=== PATIENT | male | born 1960 | race Caucasian/White ===

== ENCOUNTER 2019-05-05 09:09 | Outpatient (CLI) | payer MEDICARE, MEDICAID, SELFPAY ==
--- NOTE | 2019-05-05 09:15 | US_ITS ---
WS: [id number] RENAL ULTRASOUND with urinary bladder. HISTORY: FLANK PAIN COMPARISON: 11/13/2015 TECHNIQUE: 2-D and color Doppler imaging of the kidney submitted. Right kidney: 11.2 cm x 5.9 cm x 6.6 cm. Normal size kidney. Cortical cyst in the mid to upper kidney measures 2.9 cm in diameter. No increase d vascularity. No solid mass or hydronephrosis. Left kidney: 12.4 cm x 5.7 cm x 4.5 cm. Normal echogenicity with no hydronephrosis or mass. Aorta: Normal. Urinary Bladder: Normal distention. No soft tissue masses. No significant post void residual. Volume decreases from 76 to 6 ml. US/US renal BI with bladder IMPRESSION: 1. No hydronephrosis or solid mass. 2. Simple cortical cyst RIGHT kidney. 3. No post void residual.
== END 2019-05-05 09:10 | disposition home or self-care (01) ==
LOC: RAD 09:11
PROVIDERS: Family Provider Family Medicine; PCP Family Medicine; Visit Provider Family Medicine
DX: N28.1 Cyst of kidney, acquired (principal); R10.9 Unspecified abdominal pain
CPT/HCPCS: 76770; 76857

== ENCOUNTER → 2019-05-12 09:56 | Outpatient (BNVA) | payer MEDICARE, MEDICAID, SELFPAY | PROVIDERS: Family Provider Family Medicine; PCP Family Medicine; Visit Provider Urology | DX: N40.1 Benign prostatic hyperplasia with lower urinary tract symptoms; N13.8 Other obstructive and reflux uropathy; M54.9 Dorsalgia, unspecified | CPT/HCPCS: 81001 ==

== ENCOUNTER 2020-05-23 12:09 | Outpatient (CLI) | payer MEDICARE, MEDICAID, SELFPAY ==
--- NOTE | 2020-05-23 12:22 | XRR_ITS ---
PROCEDURE INFORMATION: Exam: XR Right Shoulder Exam date and time: 05/23/2020 12:38 PM Age: 60 years old Clinical indication: Patient HX: Bilateral shoulder pain 5-6 months; Additional info: Right shoulder pain TECHNIQUE: Imaging protocol: XR Right shoulder. Views: 2 or more views. COMPARISON: CR Shoulder 2+ views RIGHT* [id number] 06/02/2013 1:56 PM FINDINGS: Bones/joints: No fracture or dislocation. There is mild degenerative changes of the glenohumeral and acromioclavicular joints, manifested by joint space narrowing and small periarticular osteophytes. Lower cervical spine fusion hardware noted. Soft tissues: Normal. XR/XR shoulder RT min 2V* [id number] IMPRESSION: Mild degenerative changes of the glenohumeral and acromioclavicular joints.
--- NOTE | 2020-05-23 12:22 | XRR_ITS ---
PROCEDURE INFORMATION: Exam: XR Left Shoulder Exam date and time: 05/23/2020 12:40 PM Age: 60 years old Clinical indication: Patient HX: Bilateral shoulder pain 5-6 months; Additional info: Left shoulder pain TECHNIQUE: Imaging protocol: XR Left shoulder. Views: 2 or more views. COMPARISON: CR Shoulder 2+ views LEFT* [id number] 06/02/2013 1:56 PM FINDINGS: Bones/joints: No fracture or dislocation. There is mild degenerative changes of the glenohumeral and acromioclavicular joints, manifested by joint space narrowing and small periarticular osteophytes. Cervical spine fusion hardware is partially included. Soft tissues: Normal. XR/XR shoulder LT min 2V* [id number] IMPRESSION: Mild degenerative changes of the glenohumeral and acromioclavicular joints.
== END 2020-05-23 12:10 | disposition home or self-care (01) ==
PROVIDERS: PCP Family Medicine; Visit Provider Family Medicine
DX: M25.511 Pain in right shoulder (principal); M25.512 Pain in left shoulder
CPT/HCPCS: 73030

== ENCOUNTER → 2021-01-29 14:23 | Outpatient (BNVA) | payer MEDICARE, MEDICAID, SELFPAY | PROVIDERS: PCP Family Medicine; Visit Provider Specialist | DX: M19.011 Primary osteoarthritis, right shoulder (principal); M25.511 Pain in right shoulder | CPT/HCPCS: 73030 ==

== ENCOUNTER 2021-02-12 17:34 | Emergency (ER) | payer MEDICARE, MEDICAID, SELFPAY ==
[2021-02-12 17:40] VITALS: BP 190/100; PULSE 73; RESP 22; TEMP 37.2; O2SAT 95; BMI 31.6
--- NOTE | 2021-02-12 17:50 | XRR_ITS ---
PROCEDURE INFORMATION: Exam: XR Ribs Exam date and time: 02/12/2021 5:50 PM Age: 60 years old Clinical indication: Other: RT rib pain TECHNIQUE: Imaging protocol: XR of the ribs. Views: 3 views. Bilateral ribs. Total images: 4 COMPARISON: CR Chest 2 views* [id number] 05/16/2017 11:27 AM FINDINGS: Bones/joints: No visible rib fracture. Soft tissues: Unremarkable. XR/XR ribs BI 3V* [id number] IMPRESSION: No visible rib fracture. Radiation Dose CTDIVOL = (mGy): DLP = (mGy-cm)
--- NOTE | 2021-02-12 17:50 | XRR_ITS ---
PROCEDURE INFORMATION: Exam: XR Chest Exam date and time: 02/12/2021 5:50 PM Age: 60 years old Clinical indication: Pain; Right-sided TECHNIQUE: Imaging protocol: XR of the chest. Views: 2 views. Total images: 2 COMPARISON: CR Chest 2 views* [id number] 05/16/2017 11:27 AM FINDINGS: Lungs: Bibasilar discoid atelectasis, right lung more involved than left. Calcified granulomas of antecedent disease. Mild volume loss right lung with elevation the right hemidiaphragm. Pleural spaces: No visible pleural effusion. No pneumothorax. Heart/Mediastinum: Cardiac structures and configuration stable and unremarkable for age. Bones/joints: Previous cervical fusion. Degenerative disease of the spine. XR/XR chest 2V* [id number] IMPRESSION: 1. Bibasilar discoid atelectasis, right lung more involved than left. 2. Mild volume loss right lung with elevation the right hemidiaphragm. Radiation Dose CTDIVOL = (mGy): DLP = (mGy-cm)
[2021-02-12 17:58] VITALS: PULSE 80; RESP 18; TEMP 36.9; O2SAT 98
[2021-02-12] MEDS: acetaminophen-codeine 300-30mg Tablet 1 TAB PO (18:03)
--- NOTE | 2021-02-12 19:12 | ECG_ITS ---
[facility] Test Date: 2021-02-12 Pat Name: Cristiano Stiles Department: Room: Gender: Male [employer]: : 1960 Requested By: Isadora Mcclain Order Number: [id number] Woodard MD: Orville Leon M.D. Measurements Intervals [place] Rate: 69 P: 19 RI: 204 QRS: -12 QRSD: 104 T: 39 QT: 409 QTc: 440 Interpretive Statements SINUS RHYTHM Compared to ECG 10/26/2016 13:23:17 No significant changes Electronically Signed On 02-12-2021 23:51:38 CDT by Orville Leon M.D. [email or web address] Technologieskindred [id number]
--- NOTE | 2021-02-12 19:41 | W.ED.GENADLT ---
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 visible mesenteric contusion or hematoma. Vasculature: IVC filter. The abdominal aorta is nonaneurysmal. Lymph nodes: Unremarkable. No enlarged lymph nodes. Urinary bladder: Urinary bladder unremarkable. Reproductive: Mild prostate hypertrophy. Bones/joints: No visible acute osseous abnormality. 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 Facet arthrosis. Soft tissues: Bilateral small inguinal hernias containing fat only. No visible soft tissue contusion, hematoma, or seroma. CT/CT angio chest w abd pel w con IMPRESSION: 1. No visible blunt abdominal or pelvic trauma. 2. No visible solid or hollow viscus organ injury. 3. Left adrenal nodule measuring 21 mm x 20 mm. If the patient has no cancer history, then consider follow-up non-emergent adrenal CT or resection. If the patient has a history of cancer, then consider biopsy or PET/CT. (Reference: [facility]). COMMENTS: 1. Consistent with the [employer]'s Incidental Findings Committee white paper (J Am Sushil Radiol 2018): Any incidental renal lesion less than 1 cm or classified as too small to characterize, or any incidental cystic renal lesion characterized as simple-appearing, is likely benign. No follow-up imaging is recommended for these lesions per consensus recommendations based on imaging criteria. 2. For patients with an IVC filter, recommend assessment for a management plan for the patient's IVC filter. If there is no established management plan, recommend referral to an interventional clinician on a nonemergent basis for evaluation. REFERENCES: [place] ELLIS, et al. Management of Incidental Adrenal Masses: A White Paper of the ACR Incidental Findings Committee. J Am Sushil Radiol. 2017;14(8):9404-3762. Radiation Dose CTDIVOL = (mGy): DLP = 1752.46~1752.46 (mGy-cm) Dictated By:Lily Lopez By:Lily Lopez Date/Time:02/12/213DD/ 35 Coding Level of Care Code ED Employee Representative for Mei Kelley
[2021-02-12] MEDS: ketorolac 30 mg/mL INJ 15 MG IVP (19:48)
[2021-02-12 19:55] LABS: Basophils % 0.4 %; Eosinophils # 0.3 10^3/uL (0.0-0.8); Eosinophils % 2.8 %; Hemoglobin 14.6 g/dL (11.7-16.6); Lymphocytes % 27.3 %; Mean Corpuscular HGB Conc 32.4 g/dL (30.0-36.0); Mean Corpuscular Hemoglobin 29.4 pg (28.0-34.0); Mean Corpuscular Volume 90.7 fl (80-94); Mean Platelet Volume 9.9 fL (7.4-10.4); Monocytes % 8.6 %; Neutrophils # 6.73 10^3/uL (1.8-7.7); Neutrophils % 60.4 %; Nucleated Red Blood Cells % 0 %; Platelet Count 195 10^3/cmm (130-400); Red Blood Count 4.96 10^6/uL (4.1-5.3); Red Cell Distribution Width 13.2 % (12.1-15.1); White Blood Count 11.1 10^3/uL (4.0-10.0)
[2021-02-12 20:12] LABS: Alanine Aminotransferase 15 U/L (0-41); Albumin Level 4.5 g/dL (3.5-5.2); Alkaline Phosphatase 64 IU/L (40-130); Anion Gap 13.7 (5-19); Aspartate Amino Transferase 12 U/L (0-40); Blood Urea Nitrogen 12 mg/dL (8-23); Calcium 9.4 mg/dL (8.5-10.5); Carbon Dioxide 29 mmol/L (22-29); Chloride 103 mmol/L (98-107); Globulin 2.8 g/dL (1.3-4.6); Glucose 101 mg/dL (65-115); Lipase 21 U/L (13-60); Osmolality Calculated 294 mOsm/kg (285-295); Potassium 3.7 mmol/L (3.5-5.1); Sodium 142 mmol/L (136-145); Total Bilirubin 0.3 mg/dL (0.15-1.2); Total Protein 7.3 g/dL (6.6-8.7)
[2021-02-12 20:23] LABS: Troponin T (5th) Once 14 ng/L (0-15)
[2021-02-12 20:33] LABS: D Dimer 1.99 ug/mIFEU (0-0.59)
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
[2021-02-12] MEDS: iohexol 350 mg/mL 100 mL Btl IV (21:10)
--- NOTE | 2021-02-13 09:38 | PC.SOCIAL ---
referral emailed to [facility] for referral per Dr Mcclain. The clinic will call patient with appt. Reason is Adrenal Nodule evaluation
--- NOTE | 2021-02-27 08:25 | DCPLANNER ---
Patient had an appointment scheduled for 03/11 at 10:[address] Kothair - appointment was canceled.
== END 2021-02-12 21:58 | disposition home or self-care (01) ==
PROVIDERS: Emergency Provider Emergency Medicine; PCP Family Medicine
DX: E27.8 Other specified disorders of adrenal gland (principal); R10.9 Unspecified abdominal pain; R07.9 Chest pain, unspecified; I10 Essential (primary) hypertension; N40.0 Benign prostatic hyperplasia without lower urinary tract symptoms
CPT/HCPCS: 71046; 71110; 71275; 74177; 80053; 83690; 84484; 85025; 85378; 93005; 96374; 99284; J1885; Q9967

== ENCOUNTER 2021-02-27 11:12 | Outpatient (CLI) | payer MEDICARE, MEDICAID, SELFPAY ==
--- NOTE | 2021-02-27 11:00 | MR_ITS ---
WS: [id number] MRI RIGHT SHOULDER HISTORY: M67.919 - Unspecified disorder of synovium and tendon, pain in RIGHT shoulder. COMPARISON: Shoulder radiograph 01/29/2021 TECHNIQUE: Multiplanar sequences of the shoulder joint are submitted. Severe hypertrophic bone and soft tissue changes at the AC joint with significant encroachment and im pingement upon the supraspinatus tendon and muscle. There is marked synovial thickening with large os teophytes extending both superior and inferior from the distal clavicle. There is a smaller osteophyt e measuring about 5 mm from the distal undersurface of the acromion with mild subacromial impingement . Small amount of fluid in the subacromial and subdeltoid bursa. No os acromion. Biceps tendon is nor ashley positioned within the bicipital groove. No significant atrophy or edema within the rotator cuff muscles. There is significant impingement upo n the anterior supraspinatus tendon and muscle. There is tendinopathy within the distal tendon. There is a very short segment area of increased signal in the distal supraspinatus tendon seen only on a s chencho 4 mm image. This may represent a very small bursal surface tear. The tendon is not retracted. Minimal narrowing of the glenohumeral joint. No labral tear. MR/MR shoulder RT wo con* [id number] IMPRESSION: 1. Severe AC joint arthritis with osteophytes and synovial thickening encroach ing upon the anterior supraspinatus tendon and muscle. 2. Marked impingement upon the anterior supraspinatus muscle with tendinopathy . There is a very short segment of the distal supraspinatus tendon which may re present a bursal surface tear. No retraction or edema within the supraspinatus. 3. Mild subacromial and subdeltoid bursitis.
== END 2021-02-27 11:13 | disposition home or self-care (01) ==
LOC: RADSHAW 11:17
PROVIDERS: PCP Family Medicine; Visit Provider Specialist
DX: M67.911 Unspecified disorder of synovium and tendon, right shoulder (principal); M19.011 Primary osteoarthritis, right shoulder; M75.51 Bursitis of right shoulder
CPT/HCPCS: 73221

== ENCOUNTER 2021-03-21 07:14 | Outpatient (CLI) | payer MEDICARE, MEDICAID, SELFPAY ==
--- NOTE | 2021-03-21 07:15 | USCV_ITS ---
Cristiano Stiles Age: 60 Gender: M : 1960 Exam Date: 03/21/2021 07:47 Ordering Phys: Saul Salcido MD ([email or web address]) Technologist: Aashish Aponte Exam Location: [facility] [place] Indication: SOB BP: 150 / 90 HR: 67 Rhythm: Sinus Technical Quality: Adequate MEASUREMENTS (Male / Female) Normal Values 2D ECHO LV Diastolic Diameter PLAX 4.3 cm 4.2 - 5.9 / 3.9 - 5.3 cm LV Systolic Diameter PLAX 3.2 cm IVS Diastolic Thickness 1.7 cm 0.6 - 1.0 / 0.6 - 0.9 cm IVS Systolic Thickness 2.2 cm LVPW Diastolic Thickness 1.4 cm 0.6 - 1.0 / 0.6 - 0.9 cm LVPW Systolic Thickness 1.4 cm LVOT Diameter 2.0 cm LV Ejection Fraction MOD 2C 66.4 % LV Ejection Fraction 2C AL 67.2 % LA Diameter 4.7 cm LA Width 4.3 cm LA Height 5.4 cm RA Width 3.7 cm RA Height 4.3 cm M-MODE MV E Point Septal Separation 0.9 cm DOPPLER AV Peak Velocity 150.0 cm/s LVOT Peak Velocity 107.0 cm/s AV Area Cont Eq vti 2.4 cm squared AV Area Cont Eq pk 2.3 cm squared MV Area PHT 5.0 cm squared Mitral E to A Ratio 1.0 MV E' Velocity 55.0 cm/s Mitral E to MV E' Ratio 12.9 Mitral E to LV E' Lateral Ratio 11.1 Mitral E to LV E' Septal Ratio 15.5 TR Peak Velocity 184.5 cm/s TR Peak Gradient 13.6 mmHg TV Peak E Velocity 59.0 cm/s Right Atrial Pressure 3.0 mmHg Pulmonary Artery Systolic Pressu 16.6 mmHg FINDINGS Left Ventricle Normal left ventricular cavity size. Normal left ventricular systolic function. Left ventricular ejection fraction is estimated at 60 %. Grade I/IV diastolic dysfunction (abnormal relaxation filling pattern), normal to mildly elevated filling pressures. Right Ventricle The right ventricle is normal in size and function. Right Atrium The right atrium is normal in size. Left Atrium The left atrium is normal in size. Mitral Valve Moderately thickened mitral valve. No mitral valve stenosis. Trace mitral valve regurgitation. Aortic Valve Mild aortic valve calcification. No aortic valve stenosis. Trace aortic valve regurgitation. Tricuspid Valve Structurally normal tricuspid valve without significant stenosis or regurgitation. Pulmonary artery systolic pressure is normal. Pulmonic Valve Structurally normal pulmonic valve without significant stenosis. There is no pulmonic regurgitation. Pericardium Normal pericardium without effusion. Aorta Normal ascending aorta dimension. CONCLUSIONS 1-Normal left ventricular cavity size. Normal left ventricular systolic function. Left ventricular ejection fraction is estimated at 60 %. Grade I/IV diastolic dysfunction (abnormal relaxation filling pattern), normal to mildly elevated filling pressures. 2-There is no pericardial effusion. 3-No significant valve abnormalities. 4-Pulmonary artery systolic pressure is within normal limits. 5-Right atrial pressure is around 5 mm of mercury. 6-There are no prior echocardiogram studies to compare. Saul Salcido MD (Electronically Signed) Final Date: 21 March 2021 18:10 S
== END 2021-03-21 07:15 | disposition home or self-care (01) ==
LOC: US 07:15
PROVIDERS: PCP Family Medicine; Visit Provider Internal Medicine Cardiovascular Disease
DX: R06.02 Shortness of breath (principal); R07.89 Other chest pain
CPT/HCPCS: 93306

== ENCOUNTER 2021-10-25 11:03 | Outpatient (CLI) | payer MEDICARE, MEDICAID, SELFPAY ==
--- NOTE | 2021-10-25 11:15 | USCV_ITS ---
LE Venous Duplex RIGHT Cristiano Stiles Age: 61 Gender: M : 1960 Exam Date: 10/25/2021 11:25 Ordering Phys: Saul Salcido MD ([email or web address]) Technologist: Roberto Carlos Ng Exam Location: [facility] [place] Indication: insufficiency HISTORY: Patient states he has not been treated for DVT that he had in [facility]. PROCEDURES: Venous duplex imaging was performed in only the right lower extremity. The following venous structures were evaluated: common femoral vein, profunda vein, proximal portion of the greater saphenous vein, superficial femoral vein, and the popliteal vein. In addition, the posterior tibial and peroneal trunk were evaluated. Serial compression, augmentation maneuvers, and spectral Doppler flow evaluation were performed. FINDINGS: Age indeterminate, occlusive DVT exending from the right lower extremity CFV through the popliteal vein. Right PTV appears patent at this time. CONCLUSIONS Age indeterminate extensive right DVT from the CFV to the popliteal vein. Favor chronic DVT. Patient was here for a venous reflux exam but that will not be performed due to the DVT. Report will also be faxed and called to Dr. Mancini. Dr. Bambi Ernst DO (Electronically Signed) Final Date: 25 October 2021 11:50 S
== END 2021-10-25 11:04 | disposition home or self-care (01) ==
LOC: RAD 11:04
PROVIDERS: PCP Family Medicine; Visit Provider Internal Medicine Cardiovascular Disease
DX: I82.401 Acute embolism and thrombosis of unspecified deep veins of right lower extremity (principal); I83.892 Varicose veins of left lower extremity with other complications
CPT/HCPCS: 93971

== ENCOUNTER → 2021-11-08 08:15 | Outpatient (BNVA) | payer MEDICARE, MEDICAID, SELFPAY | PROVIDERS: PCP Family Medicine; Visit Provider Specialist | DX: M19.011 Primary osteoarthritis, right shoulder (principal); M75.41 Impingement syndrome of right shoulder | CPT/HCPCS: 20610; J1100; J2795; J3301 ==

== ENCOUNTER → 2021-12-03 11:47 | Outpatient (BNVA) | payer MEDICARE, MEDICAID, SELFPAY | PROVIDERS: PCP Family Medicine; Visit Provider Family Medicine | DX: Z01.89 Encounter for other specified special examinations (principal) | CPT/HCPCS: 84244 ==

== ENCOUNTER 2022-01-01 13:35 | Outpatient (CLI) | payer MEDICARE, MEDICAID, SELFPAY ==
--- NOTE | 2022-01-01 13:30 | CT_ITS ---
WS: [id number] CT HEAD TECHNIQUE: Noncontrast CT of the head obtained from the skullbase to the vertex. CLINICAL INFORMATION: Persistent HTN, Double vision COMPARISON: CT April 23, 2016 and 6 DLP: 1109.[address] scans at [facility] use at least one of these dose optimization techniques: automated e xposure control; mA and/or kV adjustment per patient size (includes targeted exams where dose is matc hed to clinical indication); or iterative reconstruction. FINDINGS: No evidence of intracranial hemorrhage or mass effect. Ventricular system and basal cisterns are deleon nt. Mild small vessel changes with moderate parenchymal volume loss. No extra-axial fluid collections . No evidence of mass or mass effect. Paranasal sinuses and mastoid air cells are well aerated. Mild mucosal thickening ethmoid air cells. CT/CT head wo con* [id number] IMPRESSION: 1. No evidence of intracranial hemorrhage or mass effect. 2. Mild small vessel changes. Moderate parenchymal volume loss 3. Paranasal sinuses and mastoid air cells well aerated. Mild mucosal thickeni ng in the ethmoid air cells. 4. No acute intracranial findings.
== END 2022-01-01 13:36 | disposition home or self-care (01) ==
LOC: RAD 13:39
PROVIDERS: PCP Family Medicine; Visit Provider Family Medicine
DX: H53.2 Diplopia (principal); I10 Essential (primary) hypertension; R51.9 Headache, unspecified
CPT/HCPCS: 70450; 80053; 82088; 84244; 84439; 84443; 85025; 85651; 86038

== ENCOUNTER → 2022-01-24 12:04 | Outpatient (BNVA) | payer MEDICARE, MEDICAID, SELFPAY | PROVIDERS: PCP Family Medicine; Visit Provider Family Medicine | DX: D35.00 Benign neoplasm of unspecified adrenal gland (principal); I10 Essential (primary) hypertension; G47.00 Insomnia, unspecified; H53.2 Diplopia; R51.9 Headache, unspecified | CPT/HCPCS: 82384; 83835; 84244 ==

== ENCOUNTER 2022-03-19 11:53 | Outpatient (CLI) | payer MEDICARE, MEDICAID, SELFPAY ==
--- NOTE | 2022-03-19 12:27 | CT_ITS ---
WS: [id number] CT ABDOMEN PELVIS TECHNIQUE: Noncontrast CT of the abdomen and contrast-enhanced CT of the abdomen and pelvis with rigoberto nal and sagittal reformatted images. CLINICAL INFORMATION: ADRENAL GLAND PROTOCOL. COMPARISON: CT abdomen pelvis 2017 DLP: 3280.[address] scans at [facility] use at least one of these dose optimization techniques: automated e xposure control; mA and/or kV adjustment per patient size (includes targeted exams where dose is matc hed to clinical indication); or iterative reconstruction. FINDINGS:LEFT adrenal nodule measuring 1.9 cm unchanged since 2020. Absolute and relative washout con sistent with adrenal adenoma. RIGHT adrenal gland is normal. IVC filter. RIGHT renal cyst measuring 3.8 cm. Normal renal parenchymal enhancement. Rotation anomaly with kidneys. Mild diffuse fatty infiltration liver. Normal spleen. Small esophageal hiatal hernia. Normal pancreat ic parenchymal enhancement. Normal portal vein and splenic vein. Lung bases are well aerated. Slight atelectasis or fibrosis RIGHT lower lobe. Normal caliber abdominal aorta. Celiac and SMA are patent. Prostate calcification. Prostate measures 4.2 CM. Normal sigmoid colon. Tiny fat-containing umbilical hernia. No free fluid in the abdomen or pelvis.Mild spondylitic changes lumbar spine. CT/CT abdomen pelvis wo/w [id number] IMPRESSION: 1. Washout characteristics compatible with LEFT adrenal adenoma. Adenomas unch anged since 1120. 2. RIGHT adrenal gland is normal. 3. Small esophageal hiatal hernia. 4. IVC filter. 5. Congenital rotation anomalies both kidneys, RIGHT greater than LEFT. 6. No other acute findings.
[2022-03-19 12:37] LABS: Blood Urea Nitrogen 15 mg/dL (8-23); Glomerular Filtration Rate 47.4 mL/min (90-130)
[2022-03-19] MEDS: iohexol 350 mg/mL 100 mL Btl IV (12:55)
== END 2022-03-19 11:54 | disposition home or self-care (01) ==
LOC: RAD 11:55
PROVIDERS: Radiology Diagnostic Radiology; PCP Family Medicine; Visit Provider Family Medicine
DX: D35.00 Benign neoplasm of unspecified adrenal gland (principal); K44.9 Diaphragmatic hernia without obstruction or gangrene
CPT/HCPCS: 74178; 82565; 84520; Q9967

== ENCOUNTER → 2022-05-02 09:00 | Outpatient (BNVA) | payer MEDICARE, MEDICAID, SELFPAY | PROVIDERS: PCP Family Medicine; Visit Provider Specialist | DX: M75.41 Impingement syndrome of right shoulder (principal); Z71.89 Other specified counseling | CPT/HCPCS: 20610; J1100; J2795; J3301 ==

== ENCOUNTER → 2022-08-01 10:09 | Outpatient (BNVA) | payer MEDICARE, MEDICAID, SELFPAY | PROVIDERS: PCP Family Medicine; Visit Provider Specialist | DX: M19.011 Primary osteoarthritis, right shoulder (principal); Z71.89 Other specified counseling | CPT/HCPCS: 20610; J1100; J2795; J3301 ==

== ENCOUNTER → 2022-11-07 14:31 | Outpatient (BNVA) | payer MEDICARE, SELFPAY | PROVIDERS: PCP Family Medicine; Visit Provider Specialist | DX: M75.41 Impingement syndrome of right shoulder (principal) | CPT/HCPCS: 20610; J1100; J2795; J3301 ==

== ENCOUNTER → 2023-01-07 11:15 | Outpatient (BNVA) | payer MEDICARE, SELFPAY | PROVIDERS: PCP Family Medicine; Visit Provider Family Medicine | DX: Z51.81 Encounter for therapeutic drug level monitoring (principal); E03.9 Hypothyroidism, unspecified; E11.9 Type 2 diabetes mellitus without complications; N40.1 Benign prostatic hyperplasia with lower urinary tract symptoms; N13.8 Other obstructive and reflux uropathy; Z86.718 Personal history of other venous thrombosis and embolism; D35.00 Benign neoplasm of unspecified adrenal gland; Z13.220 Encounter for screening for lipoid disorders | CPT/HCPCS: 80053; 80061; 83036; 84153; 84439; 84443; 85025; 86900 ==

== ENCOUNTER 2023-03-10 11:50 | Outpatient (CLI) | payer MEDICARE, SELFPAY ==
--- NOTE | 2023-03-10 12:07 | CT_ITS ---
WS: [id number] CT ABDOMEN NON-CONTRAST PLUS CONTRAST TECHNIQUE: Noncontrast CT of the abdomen and contrast-enhanced CT of the abdomen with coronal and sag ittal reformatted images. Delayed images obtained with adrenal protocol. CLINICAL INFORMATION: Adrenal Adenoma COMPARISON: CT 03/19/2022 and 2020. DLP: 2037.[address] scans at [facility] use at least one of these dose optimization techniques: automated e xposure control; mA and/or kV adjustment per patient size (includes targeted exams where dose is matc hed to clinical indication); or iterative reconstruction. FINDINGS: LEFT adrenal nodule measuring 1.9 cm unchanged since 2020. Imaging and washout characteristics comp atible with adrenal adenoma Absolute washout 55%. Relative washout 46.5%. Noncontrast Hounsfield units 4.97 RIGHT adrenal gland is normal. IVC filter. Simple RIGHT renal cyst measuring 3.8 cm unchanged compare d to previous. Normal renal parenchymal enhancement. No hydronephrosis. Rotation anomaly both kidneys unchanged. Mild diffuse fatty infiltration of the liver. Fluid distended stomach with air-fluid level. Small eso phageal hernia. Normal spleen. Normal pancreatic parenchymal enhancement. Normal portal vein and sple jodi vein. Fibrosis RIGHT lower lobe. Calcified granuloma LEFT lower lobe. Normal caliber abdominal aorta. Celiac and SMA are patent. IMPRESSION: 1. Imaging and washout characteristics compatible with LEFT adrenal adenoma. Adenoma unchanged since 2020. 2. RIGHT adrenal gland is normal. 3. Small esophageal hiatal hernia. 4. IVC filter. 5. Congenital rotation anomalies both kidneys, RIGHT greater than LEFT. 6. No other acute findings.
[2023-03-10 12:32] LABS: Blood Urea Nitrogen 10 mg/dL (8-23); Glomerular Filtration Rate 67.6 mL/min (90-130)
[2023-03-10] MEDS: iohexol 350 mg/mL 500 mL Btl (per mL) IV (12:55)
== END 2023-03-10 11:51 | disposition home or self-care (01) ==
LOC: RAD 11:50
PROVIDERS: PCP Family Medicine; Visit Provider Family Medicine
DX: D35.02 Benign neoplasm of left adrenal gland (principal)
CPT/HCPCS: 74170; 82565; 84520; Q9967

== ENCOUNTER → 2023-06-19 12:45 | Outpatient (BNVA) | payer MEDICARE, SELFPAY | PROVIDERS: PCP Family Medicine; Visit Provider Family Medicine | DX: E53.8 Deficiency of other specified B group vitamins (principal); E03.9 Hypothyroidism, unspecified; Z51.81 Encounter for therapeutic drug level monitoring; I10 Essential (primary) hypertension | CPT/HCPCS: 80048; 82607; 84439; 84443; 85025 ==

== ENCOUNTER → 2023-10-28 10:06 | Outpatient (BNVA) | payer MEDICARE, MEDICAID, SELFPAY | PROVIDERS: PCP Family Medicine; Visit Provider Family Medicine | DX: G47.00 Insomnia, unspecified (principal); R53.81 Other malaise; R53.83 Other fatigue; M25.50 Pain in unspecified joint; E03.9 Hypothyroidism, unspecified; D35.00 Benign neoplasm of unspecified adrenal gland; Z79.899 Other long term (current) drug therapy | CPT/HCPCS: 80053; 84443; 85025; 86140; 86160; 86162; 86235; 86255; 86376 ==

== ENCOUNTER → 2024-01-12 10:53 | Outpatient (BNVA) | payer MEDICARE, MEDICAID, SELFPAY | PROVIDERS: PCP Family Medicine; Visit Provider Family Medicine | DX: E03.9 Hypothyroidism, unspecified (principal) | CPT/HCPCS: 84443 ==

== ENCOUNTER → 2024-12-16 11:09 | Outpatient (BNVA) | payer MEDICARE, SELFPAY | PROVIDERS: PCP Family Medicine; Visit Provider Family Medicine | DX: E03.9 Hypothyroidism, unspecified (principal); F41.9 Anxiety disorder, unspecified; F43.9 Reaction to severe stress, unspecified; I10 Essential (primary) hypertension; I50.33 Acute on chronic diastolic (congestive) heart failure; R53.81 Other malaise; R53.83 Other fatigue | CPT/HCPCS: 80053; 80061; 83036; 84443; 85025 ==

== ENCOUNTER 2025-02-24 15:12 | Outpatient (CLI) | payer MEDICARE, SELFPAY ==
--- NOTE | 2025-02-24 15:19 | XRR_ITS ---
PROCEDURE INFORMATION: Exam: XR Right Hand Exam date and time: 02/24/2025 3:24 PM Age: 64 years old Clinical indication: Bilateral; Stiffness & pain in both hands x 10 years. ; Additional info: M19.049 - primary osteoarthritis, unspecified hand TECHNIQUE: Imaging protocol: Radiologic exam of the right hand. Views: 1 or 2 views. COMPARISON: No relevant prior studies available. FINDINGS: Bones/joints: No acute fracture or dislocation. Diffuse osseous demineralization. Mild joint space narrowing of the index finger and 3rd finger distal interphalangeal joints. Soft tissues: Normal. XR/XR hand RT 2V [id number] IMPRESSION: No acute fracture or dislocation.
--- NOTE | 2025-02-24 15:19 | XRR_ITS ---
PROCEDURE INFORMATION: Exam: XR Left Hand Exam date and time: 02/24/2025 3:24 PM Age: 64 years old Clinical indication: Bilateral; Stiffness & pain in both hands x 10 years. ; Additional info: M19.049 - primary osteoarthritis, unspecified hand TECHNIQUE: Imaging protocol: Radiologic exam of the left hand. Views: 3 or more views. COMPARISON: No relevant prior studies available. FINDINGS: Bones/joints: No acute fracture or dislocation. Diffuse osseous demineralization. Soft tissues: Normal. XR/XR hand LT 2V [id number] IMPRESSION: No acute fracture or dislocation.
[2025-02-24 16:54] LABS: Thyroid Stimulating Hormone 2.43 uIU/mL (0.27-4.20)
== END 2025-02-24 15:13 | disposition home or self-care (01) ==
PROVIDERS: PCP Family Medicine; Visit Provider Family Medicine
DX: M19.041 Primary osteoarthritis, right hand (principal); E03.9 Hypothyroidism, unspecified; M19.042 Primary osteoarthritis, left hand
CPT/HCPCS: 36415; 73120; 84436; 84443; 84481

== ENCOUNTER 2025-03-24 07:08 | Outpatient (CLI) | payer MEDICARE, SELFPAY ==
--- NOTE | 2025-03-24 07:15 | USCV_ITS ---
Cristiano Stiles Age: 64 Gender: M : 1960 Exam Date: 03/24/2025 07:15 Ordering Phys: Kang Woodard DO Technologist: FRANCES Exam Location: [facility] [place] Indication: RLE h/o dvt. HISTORY: Lower extremity pain. History of deep venous thrombosis. PROCEDURES: Venous duplex imaging was performed in only the right lower extremity. The following venous structures were evaluated: common femoral vein, profunda vein, proximal portion of the greater saphenous vein, superficial femoral vein, and the popliteal vein. In addition, the posterior tibial and peroneal trunk were evaluated. Serial compression, augmentation maneuvers, and spectral Doppler flow evaluation were performed. FINDINGS: Chronic appearing dvt in sfv through pop DVT appearing occluding in fv. CONCLUSIONS Persistent DVT femoral thru popliteal vein is simliar to 2021 likely chronic but if symptomatic consider treatment if not currently anticoagulated Occlusive DVT in femoral vein similiar to 2021 Remainder RLE patent Murtaza Schafer MD (Electronically Signed) Final Date: 24 March 2025 12:23 S
== END 2025-03-24 07:09 | disposition home or self-care (01) ==
LOC: RAD 07:09
PROVIDERS: PCP Family Medicine; Visit Provider Family Medicine
DX: I82.512 Chronic embolism and thrombosis of left femoral vein (principal); Z79.01 Long term (current) use of anticoagulants
CPT/HCPCS: 93971

== ENCOUNTER 2025-04-01 08:53 | Outpatient (CLI) | payer MEDICARE, SELFPAY ==
--- NOTE | 2025-04-01 09:30 | MR_ITS ---
WS: [id number] MR CERVICAL SPINE WO/W COMPARISON: MRI 2009 HISTORY: cervical radiculopathy, now wt decrease sensation TECHNIQUE: Sagittal T1, T2 and T2 inversion recovery; axial T2, T2 gradient and fiesta. Post gadolinium imaging with fat saturation technique. FINDINGS: Exaggeration of the normal cervical lordosis. No high grade central canal narrowing. Cord signal is normal. No abnormal gadolinium enhancement. C2-3: Mild facet arthropathy. Mild LEFT greater than RIGHT foraminal narrowing. C3-4: Moderate facet arthropathy. Moderate bilateral bony foraminal narrowing. C4-5: Central disc osteophyte protrusion. Mild central canal stenosis. Moderate facet arthropathy. Moderate bilateral bony foraminal narrowing. C5-6: Postoperative changes ACDF. Mild bilateral bony foraminal narrowing. Moderate facet arthropathy. C6-7: ACDF. Mild bilateral bony foraminal narrowing. Spinal canal is patent. C7-T1: Mild LEFT and no significant RIGHT foraminal narrowing. Spinal canal is patent. Tiny central protrusion. Bilateral thyroid nodules largest on the RIGHT measuring 2.5 cm. Smaller nodules in the inferior thyroid partially visualized. MR/MR cervical spine wo/w [id number] IMPRESSION: 1. Exaggeration of the normal cervical lordosis. Cord signal is normal. 2. ACDF C5-C7 3. Moderate bilateral bony foraminal narrowing RIGHT greater than LEFT C3-4, L EFT greater than RIGHT C4-5, LEFT C5-6, and bilateral C6-7. Mild LEFT C7-T1 for aminal narrowing. 4. Mild disc bulging at C4-5 with mild central canal stenosis. 5. Moderate facet arthropathy C3-C4, C4-C5, and C5-C6
[2025-04-01] MEDS: gadobenate dimeglumine 20 mL vial IV (09:44)
== END 2025-04-01 08:54 | disposition home or self-care (01) ==
LOC: RAD 08:54
PROVIDERS: PCP Family Medicine; Visit Provider Family Medicine
DX: M47.22 Other spondylosis with radiculopathy, cervical region (principal); R20.8 Other disturbances of skin sensation; M25.78 Osteophyte, vertebrae; M48.02 Spinal stenosis, cervical region
CPT/HCPCS: 72156; A9577